=== PATIENT | female | born 2005 | race Caucasian/White ===

== ENCOUNTER 2024-11-08 22:10 | Emergency (ER) | payer OTHER ==
[~2024-11-08] VITALS: Ht 160 cm; Wt 82.7 kg
[2024-11-08 23:02] LABS: KETONE, URINE AUTO RFX NEGATIVE (NEGATIVE); MUCUS, URINE RFX SMALL (NEGATIVE); NITRITE, URINE AUTO RFX NEGATIVE (NEGATIVE); RBC, URINE AUTO RFX 0 /HPF (0-3); SQUAM EPITHELIAL CELL UR AURFX 1 /HPF (0-6); WBC, URINE AUTO RFX 1 /HPF (0-3)
[2024-11-08 23:03] LABS: LEUKOCYTE ESTERASE UR AUTO RFX TRACE (NEGATIVE)
[2024-11-08 23:53] LABS: CALCIUM LEVEL 8.9 MG/DL (8.5-10.1); CARBON DIOXIDE LEVEL 26 MMOL/L (20-31); CHLORIDE LEVEL 106 MMOL/L (98-107); CREATININE FOR GFR 0.74 MG/DL (0.55-1.30); GLOMERULAR FILTRATION RATE > 90.0 (>60); POTASSIUM SERUM 4.1 MMOL/L (3.5-5.1); SODIUM LEVEL 142 MMOL/L (136-145)
[2024-11-08 23:58] LABS: Trichomonas vaginalis (AMP) NOT DETECTED (NEGATIVE)
[2024-11-09 00:06] LABS: HCG, SERUM QUANTITATIVE 102790.4 MIU/ML (<4.2)
[2024-11-09 00:21] LABS: BASO # 0.1 10^3/uL (0.0-0.2); BASO % 0.5 % (0.0-1.0); EOS # 0.1 10^3/uL (0.0-0.5); EOS % 0.8 % (0.0-3.0); LYMPH # 2.7 10^3/uL (1.5-5.0); LYMPH % 25.9 % (24.0-44.0); MONO # 0.5 10^3/uL (0.0-0.8); MONO % 4.9 % (2.0-8.0); NEUTROPHILS # 6.9 10^3/uL (1.5-8.5); NEUTROPHILS % 67.6 % (36.0-66.0); PLATELET COUNT, AUTOMATED 196 10^3/uL (150-450)
[2024-11-09 00:22] LABS: GC DNA AMPLIFICATION NEGATIVE (NEGATIVE)
[2024-11-09] MEDS: ACETAMINOPHEN 325 MG TAB PO ONE (01:35)
[2024-11-09 03:56] VITALS: BP 112/66; TEMP 97.9; O2SAT 98
== END 2024-11-09 04:02 | disposition home or self-care (01) ==
LOC: M ED 22:10
DX: O20.8 Other hemorrhage in early pregnancy (principal); F17.200 Nicotine dependence, unspecified, uncomplicated; Z3A.01 Less than 8 weeks gestation of pregnancy

== ENCOUNTER 2024-11-20 16:44 | Emergency (ER) | payer OTHER ==
[~2024-11-20] VITALS: Ht 160 cm; Wt 81.7 kg
[2024-11-20] MEDS ORDERED: PNV,1TAB3 (16:56)
[2024-11-20] MEDS ORDERED: PROM25TA22 (16:56)
[2024-11-20] MEDS ORDERED: SERT25TA21 (16:56)
[2024-11-20] MEDS ORDERED: HYDR-3363 (16:56)
[2024-11-20 17:40] LABS: BASO # 0.1 10^3/uL (0.0-0.2); BASO % 0.5 % (0.0-1.0); EOS # 0.1 10^3/uL (0.0-0.5); EOS % 0.6 % (0.0-3.0); LYMPH # 2.1 10^3/uL (1.5-5.0); LYMPH % 19.0 % (24.0-44.0); MONO # 0.5 10^3/uL (0.0-0.8); MONO % 4.1 % (2.0-8.0); NEUTROPHILS # 8.2 10^3/uL (1.5-8.5); NEUTROPHILS % 75.6 % (36.0-66.0); PLATELET COUNT, AUTOMATED 219 10^3/uL (150-450)
[2024-11-20 20:57] LABS: KETONE, URINE AUTO RFX NEGATIVE (NEGATIVE); LEUKOCYTE ESTERASE UR AUTO RFX TRACE (NEGATIVE); MUCUS, URINE RFX SMALL (NEGATIVE); NITRITE, URINE AUTO RFX NEGATIVE (NEGATIVE); RBC, URINE AUTO RFX 1 /HPF (0-3); SQUAM EPITHELIAL CELL UR AURFX 6 /HPF (0-6); WBC, URINE AUTO RFX 4 /HPF (0-3)
[2024-11-20 22:19] VITALS: BP 121/70; TEMP 97.5; O2SAT 100
[2024-11-20] MEDS ORDERED: FAMO20TA PO (22:27)
[2024-11-20] MEDS ORDERED: ONDA-282 PO (22:27)
[2024-11-20] MEDS ORDERED: PROM25TA12 PO (22:27)
[2024-11-20] MEDS: FAMOTIDINE 20 MG TAB PO ONE (22:36)
== END 2024-11-20 22:38 | disposition home or self-care (01) ==
LOC: M ED 16:44
DX: O21.0 Mild hyperemesis gravidarum (principal); O26.891 Other specified pregnancy related conditions, first trimester; R10.9 Unspecified abdominal pain; Z3A.09 9 weeks gestation of pregnancy; Z79.899 Other long term (current) drug therapy; Z79.83 Long term (current) use of bisphosphonates

== ENCOUNTER → 2024-12-07 | Outpatient (CLI) | payer OTHER ==
[~2024-12-07] MED LIST: FAMO20TA PO; HYDR-3363; ONDA-282 PO; PNV,1TAB3; PROM25TA12 PO; PROM25TA22; SERT25TA21
[2024-12-07 18:14] LABS: TOTAL PROTEIN,RANDOM URINE < 6.0 MG/DL (0.0-14.0)
[2024-12-07 18:44] LABS: Trichomonas vaginalis (AMP) NOT DETECTED (NEGATIVE)
[2024-12-07 18:51] LABS: PLATELET COUNT, AUTOMATED 238 10^3/uL (150-450)
[2024-12-07 19:09] LABS: GC DNA AMPLIFICATION NEGATIVE (NEGATIVE)
[2024-12-07 19:17] LABS: LDH LACTATE DEHYDROGENASE 148 U/L (120-246)
[2024-12-07 19:18] LABS: ALT/SGPT 15 U/L (7.0-40); AST/SGOT 14 U/L (<34); CREATININE FOR GFR 0.53 MG/DL (0.55-1.30); GLOMERULAR FILTRATION RATE > 90.0 (>60)
[2024-12-07 19:41] LABS: HIV 1&2 SCREEN NEGATIVE (NEGATIVE)
[2024-12-07 19:49] LABS: HEPATITIS C VIRUS ABY INDEX < 0.02 INDEX (<0.8)
== END ==
LOC: M PLALAB 14:57
PROVIDERS: ATTEND Nurse Practitioner Family
DX: Z34.80 Encounter for supervision of other normal pregnancy, unspecified trimester (principal)

== ENCOUNTER → 2024-12-07 | Outpatient (REF) | payer OTHER | LOC: M PLALAB 14:41 | PROVIDERS: ATTEND Nurse Practitioner Family | DX: Z34.80 Encounter for supervision of other normal pregnancy, unspecified trimester (principal) ==

== ENCOUNTER 2024-12-22 20:14 | Emergency (ER) | payer OTHER ==
[~2024-12-22] VITALS: Ht 160 cm; Wt 82.2 kg
[2024-12-23] MEDS: ACETAMINOPHEN *IV* 1,000 MG in IV 1 EA IV ONE (08:17)
[2024-12-23] MEDS ORDERED: MEDR4PAK PO (11:55)
[2024-12-23] MEDS ORDERED: PERC5TAB12 PO (11:57)
[2024-12-23 12:18] VITALS: BP 109/66; TEMP 97.4; O2SAT 100
== END 2024-12-23 12:25 | disposition home or self-care (01) ==
LOC: M ED 20:14
DX: O99.352 Diseases of the nervous system complicating pregnancy, second trimester (principal); M54.32 Sciatica, left side; F31.9 Bipolar disorder, unspecified; F17.200 Nicotine dependence, unspecified, uncomplicated; E28.2 Polycystic ovarian syndrome; Z3A.13 13 weeks gestation of pregnancy; Z79.899 Other long term (current) drug therapy; Z79.83 Long term (current) use of bisphosphonates
CPT/HCPCS: 76801; 93971; 96374; 99284; J0131; J2919

== ENCOUNTER 2025-01-17 12:27 | Emergency (ER) | payer OTHER ==
[~2025-01-17] VITALS: Ht 160 cm; Wt 79.0 kg
[~2025-01-17 12:27] MED LIST changes: +MEDR4PAK PO; +PERC5TAB12 PO
[2025-01-17 12:29] VITALS: BP 114/61; TEMP 96.4; O2SAT 100
== END 2025-01-17 12:53 | disposition left against medical advice (07) ==
LOC: M ED 12:27
DX: Z53.21 Procedure and treatment not carried out due to patient leaving prior to being seen by health care provider (principal)

== ENCOUNTER 2025-01-26 15:42 | Emergency (ER) | payer OTHER ==
[~2025-01-26] VITALS: Ht 160 cm; Wt 79.6 kg
[2025-01-26 16:11] LABS: BASO # 0.1 10^3/uL (0.0-0.2); BASO % 0.6 % (0.0-1.0); EOS # 0.1 10^3/uL (0.0-0.5); EOS % 0.8 % (0.0-3.0); LYMPH # 2.4 10^3/uL (1.5-5.0); LYMPH % 24.6 % (24.0-44.0); MONO # 0.4 10^3/uL (0.0-0.8); MONO % 4.0 % (2.0-8.0); NEUTROPHILS # 6.7 10^3/uL (1.5-8.5); NEUTROPHILS % 69.6 % (36.0-66.0); PLATELET COUNT, AUTOMATED 208 10^3/uL (150-450)
[2025-01-26 16:34] LABS: KETONE, URINE AUTO RFX NEGATIVE (NEGATIVE); LEUKOCYTE ESTERASE UR AUTO RFX NEGATIVE (NEGATIVE); MUCUS, URINE RFX SMALL (NEGATIVE); NITRITE, URINE AUTO RFX NEGATIVE (NEGATIVE); RBC, URINE AUTO RFX 2 /HPF (0-3); SQUAM EPITHELIAL CELL UR AURFX 2 /HPF (0-6); WBC, URINE AUTO RFX 1 /HPF (0-3)
[2025-01-26 16:45] LABS: ALT/SGPT 10 U/L (7.0-40); AST/SGOT 12 U/L (<34); CALCIUM LEVEL 8.6 MG/DL (8.5-10.1); CARBON DIOXIDE LEVEL 25 MMOL/L (20-31); CHLORIDE LEVEL 105 MMOL/L (98-107); CREATININE FOR GFR 0.53 MG/DL (0.55-1.30); GLOMERULAR FILTRATION RATE > 90.0 (>60); POTASSIUM SERUM 4.1 MMOL/L (3.5-5.1); SODIUM LEVEL 141 MMOL/L (136-145)
[2025-01-26] MEDS: ONDANSETRON 4MG/2ML VIAL IV ONE (17:32)
[2025-01-26] MEDS: NS (Normal Saline) 0.9% 1,000 ML IV ONE (17:32)
[2025-01-26] MEDS: MORPHINE 4 MG/ML 1 ML VIAL IV ONE (17:33)
[2025-01-26 20:46] VITALS: BP 100/54; TEMP 98; O2SAT 100
== END 2025-01-26 21:06 | disposition home or self-care (01) ==
LOC: M ED 15:42
DX: O26.92 Pregnancy related conditions, unspecified, second trimester (principal); R51.9 Headache, unspecified; Z3A.27 27 weeks gestation of pregnancy; Z91.048 Other nonmedicinal substance allergy status; Z79.899 Other long term (current) drug therapy
CPT/HCPCS: 76811; 80048; 80076; 81001; 83690; 85025; 96361; 96374; 96375; 99284; J2405

== ENCOUNTER → 2025-02-20 | Outpatient (CLI) | payer OTHER | LOC: M WHC 12:54 | PROVIDERS: ATTEND Nurse Practitioner Family | DX: Z34.80 Encounter for supervision of other normal pregnancy, unspecified trimester (principal) ==

== ENCOUNTER → 2025-02-27 | Outpatient (CLI) | payer OTHER ==
[~2025-02-27] MED LIST changes: +PRENTAB9 PO
[2025-02-27 15:43] LABS: CORTISOL PM 20.2 UG/DL (3.1-16.7)
[2025-02-27 15:46] LABS: PROLACTIN 180.28 NG/ML
[2025-02-27 15:47] LABS: FREE T4 1.08 NG/DL (0.89-1.76)
== END ==
LOC: M LAB 14:26
PROVIDERS: ATTEND Obstetrics & Gynecology
DX: D35.2 Benign neoplasm of pituitary gland (principal)

== ENCOUNTER 2025-03-05 23:08 | Emergency (ER) | payer OTHER ==
[~2025-03-05 23:08] MED LIST changes: -PRENTAB9 PO
== END 2025-03-05 23:42 | disposition admitted as inpatient to this hospital (09) ==
LOC: M ED 23:08
DX: Z53.21 Procedure and treatment not carried out due to patient leaving prior to being seen by health care provider (principal)

== ENCOUNTER 2025-03-05 23:17 | Outpatient (CLI) | payer OTHER ==
[~2025-03-05] VITALS: Ht 160 cm; Wt 81.8 kg
[2025-03-05 23:39] VITALS: BP 108/68
[2025-03-06 00:37] LABS: APPEARANCE, URINE CLEAR (CLEAR); BACTERIA, URINE AUTO NEGATIVE (NEGATIVE); BILIRUBIN, URINE AUTO NEGATIVE (NEGATIVE); BLOOD, URINE BLOOD NEGATIVE (NEGATIVE); GLUCOSE, URINE (UA) AUTO NEGATIVE (NEGATIVE); KETONE, URINE AUTO NEGATIVE (NEGATIVE); LEUKOCYTE ESTERASE, URINE AUTO NEGATIVE (NEGATIVE); NITRITE, URINE AUTO NEGATIVE (NEGATIVE); PROTEIN, URINE AUTO NEGATIVE (NEGATIVE); RBC, URINE AUTO 0 /HPF (0-3); SPECIFIC GRAVITY URINE AUTO 1.010 (1.002-1.035); SQUAMOUS EPITHELIAL CELL UR AU 1 /HPF (0-6); UROBILINOGEN, URINE AUTO 0.2 mg/dL (0.0-2.0); WBC, URINE AUTO 2 /HPF (0-3)
[2025-03-06 00:39] LABS: PLATELET COUNT, AUTOMATED 205 10^3/uL (150-450)
[2025-03-06] MEDS: ACETAMINOPHEN 500 MG TAB PO ONE (00:43)
[2025-03-06] MEDS: diphenhydrAMINE 50 MG/ML VIAL IV STA (00:43)
[2025-03-06] MEDS: LR 1,000 ML IV ONE (00:43)
[2025-03-06 01:07] LABS: TOTAL PROTEIN,RANDOM URINE < 6.0 MG/DL (0.0-14.0)
[2025-03-06 01:07] LABS: ALT/SGPT < 9 U/L (7.0-40); AST/SGOT 11 U/L (<34); CALCIUM LEVEL 8.5 MG/DL (8.5-10.1); CARBON DIOXIDE LEVEL 22 MMOL/L (20-31); CHLORIDE LEVEL 106 MMOL/L (98-107); CREATININE FOR GFR 0.43 MG/DL (0.55-1.30); GLOMERULAR FILTRATION RATE > 90.0 (>60); POTASSIUM SERUM 3.7 MMOL/L (3.5-5.1); SODIUM LEVEL 140 MMOL/L (136-145)
[2025-03-06 02:43] VITALS: BP 107/61
== END 2025-03-06 05:20 | disposition home or self-care (01) ==
LOC: M LDO 23:17
PROVIDERS: ATTEND Obstetrics & Gynecology
DX: O26.892 Other specified pregnancy related conditions, second trimester (principal); O99.342 Other mental disorders complicating pregnancy, second trimester; O99.282 Endocrine, nutritional and metabolic diseases complicating pregnancy, second trimester; R51.9 Headache, unspecified; F41.8 Other specified anxiety disorders; F31.9 Bipolar disorder, unspecified; E27.40 Unspecified adrenocortical insufficiency; Z3A.23 23 weeks gestation of pregnancy
CPT/HCPCS: 59025; 80053; 81001; 82570; 84156; 85027; 96374; 96375; G0463; J1200; J2765

== ENCOUNTER 2025-03-22 19:44 | Outpatient (CLI) | payer OTHER ==
[~2025-03-22] VITALS: Ht 160 cm; Wt 82.1 kg
[2025-03-22 19:59] VITALS: BP 107/67
[2025-03-22] MEDS ORDERED: PRENTAB9 PO (20:08)
[2025-03-22] MEDS ORDERED: HOME MED LIST COMPLETE! XX SCH (20:10)
[2025-03-22 20:31] LABS: APPEARANCE, URINE CLEAR (CLEAR); BACTERIA, URINE AUTO NEGATIVE (NEGATIVE); BILIRUBIN, URINE AUTO NEGATIVE (NEGATIVE); BLOOD, URINE BLOOD NEGATIVE (NEGATIVE); GLUCOSE, URINE (UA) AUTO NEGATIVE (NEGATIVE); KETONE, URINE AUTO NEGATIVE (NEGATIVE); LEUKOCYTE ESTERASE, URINE AUTO NEGATIVE (NEGATIVE); MUCUS, URINE SMALL (NEGATIVE); NITRITE, URINE AUTO NEGATIVE (NEGATIVE); PROTEIN, URINE AUTO NEGATIVE (NEGATIVE); RBC, URINE AUTO 0 /HPF (0-3); SPECIFIC GRAVITY URINE AUTO 1.008 (1.002-1.035); SQUAMOUS EPITHELIAL CELL UR AU 1 /HPF (0-6); UROBILINOGEN, URINE AUTO 2.0 mg/dL (0.0-2.0); WBC, URINE AUTO 1 /HPF (0-3)
[2025-03-22] MEDS: CYCLOBENZAPRINE 10 MG TABLET PO ONE (20:32)
== END 2025-03-22 21:26 | disposition home or self-care (01) ==
LOC: M LDO 19:44
PROVIDERS: ATTEND Advanced Practice Midwife
DX: O36.8120 Decreased fetal movements, second trimester, not applicable or unspecified (principal); O26.892 Other specified pregnancy related conditions, second trimester; O99.342 Other mental disorders complicating pregnancy, second trimester; R10.20 Pelvic and perineal pain unspecified side; M54.50 Low back pain, unspecified; F41.9 Anxiety disorder, unspecified; F31.9 Bipolar disorder, unspecified; Z3A.26 26 weeks gestation of pregnancy; Z87.59 Personal history of other complications of pregnancy, childbirth and the puerperium
CPT/HCPCS: 59025; 81001; 87086; G0463

== ENCOUNTER 2025-03-28 18:45 | Outpatient (CLI) | payer OTHER ==
[2025-03-28] VITALS (11 sets, daily range): BP systolic 118–143; BP diastolic 70–86
[~2025-03-28 18:45] MED LIST changes: +PRENTAB9 PO
[2025-03-28 21:44] LABS: PLATELET COUNT, AUTOMATED 218 10^3/uL (150-450)
[2025-03-28 22:13] LABS: ALT/SGPT 10 U/L (7.0-40); AST/SGOT 13 U/L (<34); CALCIUM LEVEL 8.5 MG/DL (8.5-10.1); CARBON DIOXIDE LEVEL 24 MMOL/L (20-31); CHLORIDE LEVEL 104 MMOL/L (98-107); CREATININE FOR GFR 0.47 MG/DL (0.55-1.30); GLOMERULAR FILTRATION RATE > 90.0 (>60); POTASSIUM SERUM 3.6 MMOL/L (3.5-5.1); SODIUM LEVEL 138 MMOL/L (136-145)
[2025-03-28] MEDS: busPIRone 5 MG TAB PO ONE (22:38)
== END 2025-03-28 22:55 | disposition home or self-care (01) ==
LOC: M LDO 18:45
PROVIDERS: ATTEND Advanced Practice Midwife
DX: O99.342 Other mental disorders complicating pregnancy, second trimester (principal); O26.892 Other specified pregnancy related conditions, second trimester; O99.282 Endocrine, nutritional and metabolic diseases complicating pregnancy, second trimester; F41.8 Other specified anxiety disorders; F31.9 Bipolar disorder, unspecified; E27.40 Unspecified adrenocortical insufficiency; R07.1 Chest pain on breathing; Z67.41 Type O blood, Rh negative; Z3A.27 27 weeks gestation of pregnancy
CPT/HCPCS: 36415; 59025; 80053; 85027; 87486; 87581; 87633; 87798; G0463